=== PATIENT | male | born 1950 | race Caucasian/White ===

== ENCOUNTER → 2016-07-12 | Outpatient (REF) | payer OTHER ==
[2016-07-12 13:00] LABS: ALBUMIN 3.8 GM/DL (3.2-5.2); ALBUMIN/GLOBULIN RATIO 1.46 (1.00-1.93); ALKALINE PHOSPHATASE 73 U/L (45-117); ALT/SGPT 38 U/L (12-78); ANION GAP 6 MEQ/L (8-16); AST/SGOT 22 U/L (15-37); BILIRUBIN,TOTAL 0.9 MG/DL (0.2-1.0); BLOOD UREA NITROGEN 18 MG/DL (7-18); CALCIUM LEVEL 8.6 MG/DL (8.8-10.2); CARBON DIOXIDE LEVEL 31 MEQ/L (21-32); CHLORIDE LEVEL 103 MEQ/L (98-107); CHOLESTEROL LEVEL 149 MG/DL (<200); CREATININE FOR GFR 1.06 MG/DL (0.70-1.30); GLOMERULAR FILTRATION RATE > 60.0 (>49); GLUCOSE, FASTING 112 MG/DL (80-110); POTASSIUM SERUM 4.3 MEQ/L (3.5-5.1); SODIUM LEVEL 140 MEQ/L (136-145); TOTAL PROTEIN 6.4 GM/DL (6.4-8.2); TRIGLYCERIDES LEVEL 173 MG/DL (<150)
== END ==
LOC: M SFHCPLAZ 08:00
PROVIDERS: ATTEND Nurse Practitioner Family
DX: I10 Essential (primary) hypertension (principal); R73.01 Impaired fasting glucose

== ENCOUNTER → 2016-10-11 | Outpatient (REF) | payer OTHER ==
[2016-10-14 00:08] LABS: Lyme Disease IgG/IgM Antibodie <0.91 ISR (0.00-0.90); Lyme Disease IgM Ab Quantitati <0.80 index (0.00-0.79)
== END ==
LOC: M SFHCPLAZ 10:58
PROVIDERS: ATTEND Nurse Practitioner Family
DX: S40.861A Insect bite (nonvenomous) of right upper arm, initial encounter (principal); W18.30XA Fall on same level, unspecified, initial encounter; Y92.009 Unspecified place in unspecified non-institutional (private) residence as the place of occurrence of the external cause

== ENCOUNTER → 2017-01-03 | Outpatient (REF) | payer OTHER ==
[2017-01-03 11:27] LABS: ALBUMIN 3.8 GM/DL (3.2-5.2); ALBUMIN/GLOBULIN RATIO 1.23 (1.00-1.93); ALKALINE PHOSPHATASE 75 U/L (45-117); ALT/SGPT 40 U/L (12-78); ANION GAP 6 MEQ/L (8-16); AST/SGOT 20 U/L (15-37); BILIRUBIN,TOTAL 0.7 MG/DL (0.2-1.0); BLOOD UREA NITROGEN 23 MG/DL (7-18); CALCIUM LEVEL 8.9 MG/DL (8.8-10.2); CARBON DIOXIDE LEVEL 30 MEQ/L (21-32); CHLORIDE LEVEL 106 MEQ/L (98-107); GLOMERULAR FILTRATION RATE > 60.0 (>49); GLUCOSE, FASTING 113 MG/DL (80-110); POTASSIUM SERUM 3.9 MEQ/L (3.5-5.1); SODIUM LEVEL 142 MEQ/L (136-145); TOTAL PROTEIN 6.9 GM/DL (6.4-8.2)
== END ==
LOC: M SFHCPLAZ 08:42
PROVIDERS: ATTEND Nurse Practitioner Family
DX: E78.5 Hyperlipidemia, unspecified (principal)

== ENCOUNTER → 2018-02-18 | Outpatient (REF) | payer MEDICARE, OTHER ==
[2018-02-18 12:21] LABS: ALBUMIN 3.8 GM/DL (3.2-5.2); ALBUMIN/GLOBULIN RATIO 1.15 (1.00-1.93); ALKALINE PHOSPHATASE 84 U/L (45-117); ALT/SGPT 46 U/L (12-78); ANION GAP 8 MEQ/L (8-16); AST/SGOT 37 U/L (7-37); BILIRUBIN,TOTAL 1.1 MG/DL (0.2-1.0); BLOOD UREA NITROGEN 18 MG/DL (7-18); CALCIUM LEVEL 8.8 MG/DL (8.8-10.2); CARBON DIOXIDE LEVEL 28 MEQ/L (21-32); CHLORIDE LEVEL 106 MEQ/L (98-107); CHOLESTEROL LEVEL 168 MG/DL (<200); CHOLESTEROL RISK RATIO 2.666 (<5); GLOMERULAR FILTRATION RATE > 60.0 (>49); GLUCOSE, FASTING 110 MG/DL (70-100); HDL CHOLESTEROL 63 MG/DL (>40); LDL CHOLESTEROL 89 MG/DL (<100); NON-HDL-C 105 MG/DL; POTASSIUM SERUM 4.3 MEQ/L (3.5-5.1); SODIUM LEVEL 142 MEQ/L (136-145); TOTAL PROTEIN 7.1 GM/DL (6.4-8.2); TRIGLYCERIDES LEVEL 82 MG/DL (<150)
[2018-02-18 14:30] LABS: ESTIMATED AVERAGE GLUCOSE 128 MG/DL (60-110); HEMOGLOBIN A1c 6.1 %
== END ==
LOC: M SFHCPLAZ 09:22
DX: R73.01 Impaired fasting glucose (principal); E78.5 Hyperlipidemia, unspecified; Z12.5 Encounter for screening for malignant neoplasm of prostate
CPT/HCPCS: 80053

== ENCOUNTER → 2018-08-16 | Outpatient (REF) | payer MEDICARE, OTHER ==
[2018-08-16 12:52] LABS: ALT/SGPT 45 U/L (12-78); BILIRUBIN,TOTAL 0.5 MG/DL (0.2-1.0); BLOOD UREA NITROGEN 23 MG/DL (7-18); CALCIUM LEVEL 8.9 MG/DL (8.8-10.2); CARBON DIOXIDE LEVEL 28 MEQ/L (21-32); CHLORIDE LEVEL 109 MEQ/L (98-107); CREATININE FOR GFR 1.01 MG/DL (0.70-1.30); GLOMERULAR FILTRATION RATE > 60.0 (>49); GLUCOSE, FASTING 116 MG/DL (70-100); POTASSIUM SERUM 4.4 MEQ/L (3.5-5.1); SODIUM LEVEL 143 MEQ/L (136-145); TOTAL PROTEIN 6.5 GM/DL (6.4-8.2)
== END ==
LOC: M SFHCPLAZ 08:43
PROVIDERS: ATTEND Nurse Practitioner Family
DX: I10 Essential (primary) hypertension (principal); E78.5 Hyperlipidemia, unspecified

== ENCOUNTER → 2018-10-29 | Outpatient (CLI) | payer MEDICARE, OTHER ==
--- NOTE | 2018-10-29 15:39 | REP ---
Supine abdomen two views for renal calculi: Comparison is 02/20/2012. There is a calculus in the mid pole of the left kidney measuring 14 mm. This previously measured 10 mm. There is a calculus in the left renal upper pole measuring 5 mm. This was not present previously. No right renal calculi are identified. There is a small calculus in the right upper quadrant. On a CT scan dated 01/22/2012 this can be seen as a calcified mesenteric node. No other calculi are identified. The bowel gas pattern is normal. Skeletal structures are unremarkable. Impression: Left renal calculi as described. Right upper quadrant calcified mesenteric node as described. Electronically Signed by Braeden Alcazar MD 10/29/2018 03:31 P
== END ==
LOC: M ADAMS 13:23
PROVIDERS: ATTEND Physician Assistant Medical
DX: R31.0 Gross hematuria (principal); N20.0 Calculus of kidney
CPT/HCPCS: 74018; 81002; G0463

== ENCOUNTER → 2018-11-12 | Outpatient (REF) | payer MEDICARE, OTHER ==
[~2018-11-12] MED LIST: ASPI81TA85 PO; CLAR10TA7 PO; CO Q50CA PO; COLA100C5 PO; DIOV80TA3 PO; FLOM0.4C39 PO; KRIL1CAP10 PO; LIPI20TA PO; MULTCAP PO; OCUV1CAP4 PO; PERCOCET PO; PROBCAP14 PO; TUMETAB PO; VIAG100T PO
== END ==
LOC: M SFHCPLAZ 09:51
PROVIDERS: ATTEND Nurse Practitioner Family
DX: N02.9 Recurrent and persistent hematuria with unspecified morphologic changes (principal); N20.0 Calculus of kidney
CPT/HCPCS: 81002; 87086; G0463

== ENCOUNTER → 2018-11-13 | Outpatient (CLI) | payer MEDICARE, OTHER ==
[2018-11-13 13:49] LABS: BLOOD UREA NITROGEN 22 MG/DL (7-18); CREATININE FOR GFR 0.93 MG/DL (0.70-1.30); GLOMERULAR FILTRATION RATE > 60.0 (>49)
[2018-11-13 13:50] LABS: APPEARANCE, URINE CLEAR (CLEAR); BACTERIA, URINE AUTO NEGATIVE (NEGATIVE); BILIRUBIN, URINE AUTO NEGATIVE (NEGATIVE); BLOOD, URINE BLOOD 1+ (NEGATIVE); CALCIUM OXALATE CRYSTALS SMALL; COLOR, URINE YELLOW (YELLOW); GLUCOSE, URINE (UA) AUTO NEGATIVE (NEGATIVE); KETONE, URINE AUTO NEGATIVE (NEGATIVE); LEUKOCYTE ESTERASE, URINE AUTO NEGATIVE (NEGATIVE); MUCUS, URINE SMALL (NEGATIVE); NITRITE, URINE AUTO NEGATIVE (NEGATIVE); PROTEIN, URINE AUTO NEGATIVE (NEGATIVE); RBC, URINE AUTO 27 /HPF (0-3); SPECIFIC GRAVITY URINE AUTO 1.021 (1.002-1.035); SQUAMOUS EPITHELIAL CELL UR AU 0 /HPF (0-6); UROBILINOGEN, URINE AUTO 0.2 mg/dL (0.0-2.0); WBC, URINE AUTO 2 /HPF (0-3)
== END ==
LOC: M SMT 10:02
PROVIDERS: ATTEND Urology
DX: R31.29 Other microscopic hematuria (principal)
CPT/HCPCS: 36415; 81001; 82565; 84520; G0463

== ENCOUNTER → 2018-11-15 | Outpatient (CLI) | payer MEDICARE, OTHER ==
[~2018-11-15] MED LIST changes: +ISOVUE-370 76% 100ML VIAL (Q9967) As Ordered ONE
--- NOTE | 2018-11-15 18:54 | REP ---
CT ABDOMEN PELVIS WITH WITHOUT AND WITH IV CONTRAST (CT UROGRAM): 11/15/2018. Comparison: Abdomen x-ray 10/29/2018, noncontrast CT 01/22/2012. Clinical history: Microhematuria. Renal stone disease. Technique: Precontrast images followed by bolus 100 ml Isovue 370 with a venous and delayed phases obtained. Coronal and sagittal reconstructions with 3-D surface rendering for CT urogram provided for the delayed images. Findings: CT abdomen: The lung bases are clear. Heart size borderline but no pericardial thickening or effusion. Left ventricle appears mildly prominent. No hiatal hernia. Liver and spleen are not enlarged and were unremarkable. No biliary dilatation seen. No ascites. Gallbladder without calcified stone or mass. Pancreas unremarkable. Adrenal glands were grossly intact. Stomach collapsed without mass. The small bowel loops and abdominal portion of the colon were unremarkable. A retrocecal appendix is seen. There is an exophytic lesion off the anterior aspect upper pole of the right kidney up to 2.3 x 2.5 x 2[address] attenuation values of 19 HU precontrast enhancing to 46 on the venous phase and 77 on the delayed phase indicating an enhancing solid lesion. The left lower pole 4.7 cm cyst in 2012 is 11 mm now with a scar adjacent. Posteriorly in the upper pole of the right kidney is a 2.3 cm simple cyst. There was an extrarenal pelvis with a 14 mm stone within it. There are a couple of tiny pyramidal stones in the right kidney 2-3 mm and another stone about 6.8 mm triangular-shaped in a pyramid in the upper pole region. The ureters are not dilated. They show no stone on either side as they coarse from the UPJ to the UVJ. The bone window show no stone on either side as they course from the UPJ to the UVJ. Bone windows show lumbar and lower thoracic levels with some minor degenerative change and the visualized ribs intact. CT pelvis, sacrum and SI joints show minor degenerative changes of the hips but there is no fracture or destructive lesion nor interval changes since 2011. Prostate mildly prominent. Few calcifications. Bladder without mass or wall thickening. Small urachal remnant without patent urachus. No mass. No pelvic lymphadenopathy. Omental fat slightly distending the inguinal canals but no inguinal hernia on the bowel loops. Small bowel loops and distal: Unremarkable. Impression: 1. Peripherally and anterolaterally in the upper pole right kidney, an exophytic 2.5 x 2.3 cm enhancing nodule representing at least partially solid lesion. This should be considered malignant until proven otherwise. 2. Nephrolithiasis as described, the largest a 14 mm left renal pelvic stone with a few other much smaller stones as described. No hydronephrosis or hydroureter and no ureteral/bladder stone. 3. No other significant finding. Urology referral strongly recommended. Note faxed to office. Electronically Signed by Oumar De Souza MD 11/16/2018 10:02 A
== END ==
LOC: M RAD 12:41
PROVIDERS: ATTEND Urology
DX: N20.0 Calculus of kidney (principal)
CPT/HCPCS: 74178; Q9967

== ENCOUNTER → 2018-11-27 | Outpatient (CLI) | payer MEDICARE, OTHER ==
[~2018-11-27] MED LIST changes: -COLA100C5 PO; -FLOM0.4C39 PO; -ISOVUE-370 76% 100ML VIAL (Q9967) As Ordered ONE; -KRIL1CAP10 PO; -PERCOCET PO; -TUMETAB PO
[2018-11-27 14:48] LABS: BASO % 0.7 % (0.0-1.0); EOS # 0.1 10^3/uL (0.0-0.50); EOS % 2.5 % (0.0-3.0); HEMATOCRIT 42.8 % (42.0-52.0); HEMOGLOBIN 14.1 g/dl (13.5-17.5); LYMPH # 1.9 10^3/uL (1.5-4.5); LYMPH % 32.9 % (24.0-44.0); MEAN CORPUSCULAR HEMOGLOBIN 30.9 pg (27.0-33.0); MEAN CORPUSCULAR HGB CONC 32.9 g/dl (32.0-36.5); MEAN CORPUSCULAR VOLUME 93.9 fl (80.0-96.0); MONO # 0.6 10^3/uL (0.0-0.8); MONO % 9.7 % (0.0-5.0); NEUTROPHILS # 3.1 10^3/uL (1.8-7.7); PLATELET COUNT, AUTOMATED 210 10^3/uL (150-450); RED BLOOD COUNT 4.56 10^6/uL (4.30-6.10); WHITE BLOOD COUNT 5.7 10^3/uL (4.0-10.0)
[2018-11-27 14:52] LABS: BLOOD UREA NITROGEN 25 MG/DL (7-18); CALCIUM LEVEL 9.5 MG/DL (8.8-10.2); CARBON DIOXIDE LEVEL 29 MEQ/L (21-32); CHLORIDE LEVEL 110 MEQ/L (98-107); CREATININE FOR GFR 0.98 MG/DL (0.70-1.30); GLOMERULAR FILTRATION RATE > 60.0 (>49); GLUCOSE, FASTING 109 MG/DL (70-100); POTASSIUM SERUM 4.3 MEQ/L (3.5-5.1); SODIUM LEVEL 143 MEQ/L (136-145)
== END ==
LOC: M SMT 09:27
PROVIDERS: ATTEND Urology
DX: N02.9 Recurrent and persistent hematuria with unspecified morphologic changes (principal); N20.0 Calculus of kidney

== ENCOUNTER 2018-12-19 06:07 | Day surgery (SDC) | payer MEDICARE, OTHER ==
[~2018-12-19] VITALS: Ht 170.2 cm; Wt 81.2 kg
[~2018-12-19 06:07] MED LIST changes: +LR 1,000 ML IV ONE
[2018-12-19] MEDS ORDERED: PROPOFOL 200 MG/20 ML VIAL As Ordered ONE (07:09)
[2018-12-19] MEDS ORDERED: ONDANSETRON 4MG/2ML VIAL (J2405) As Ordered ONE (07:09)
[2018-12-19] MEDS ORDERED: MIDAZOLAM INJ 2 MG/2 ML VIAL (J2250) As Ordered ONE (07:09)
[2018-12-19] MEDS ORDERED: fentaNYL 100 MCG/2 ML INJECTION (J3010) As Ordered ONE (07:09)
[2018-12-19] MEDS ORDERED: LIDOCAINE 2% INJ 100 MG/5 ML SDV (FOR ANES.) As Ordered ONE (07:09)
[2018-12-19] MEDS ORDERED: ONDANSETRON 4MG/2ML VIAL (J2405) IV PRN (08:30)
[2018-12-19] MEDS ORDERED: fentaNYL 100 MCG/2 ML INJECTION (J3010) IV PRN (08:30)
[2018-12-19] MEDS ORDERED: PERCOCET 5MG/325MG TAB PO PRN (08:45)
--- NOTE | 2018-12-19 09:33 | REP ---
KUB: Single view. HISTORY: Kidney stone. COMPARISON RADIOGRAPHS: March 04, 2012. Comparison CT study November 15, 2018. FINDINGS: There is a large central intrarenal calculus projecting over the left kidney measuring 16 mm in diameter unchanged from the CT. There are two to three other visible calcific opacities overlying the left kidney which are all smaller. There is some bowel gas over the right kidney and the top of the right kidney is excluded from the field of view. No definite right renal calculus. No bladder calculus is observed. There is a phlebolith in the right pelvis. IMPRESSION: Intrarenal nephrolithiasis left kidney essentially unchanged from the recent CT study. The largest stone is central consistent with the pelvic location on CT. This measures 16 mm on plain radiographs. Electronically Signed by Terrence Graham MD 12/19/2018 12:57 P
[2018-12-19 09:40] VITALS: BP 150/71
--- NOTE | 2018-12-19 19:55 | RO ---
DATE OF PROCEDURE: 12/19/2018 PREPROCEDURE DIAGNOSIS: Left kidney stones. POSTPROCEDURE DIAGNOSIS: Left kidney stones. PROCEDURE: Left extracorporeal shock wave lithotripsy. SURGEON: Dr. Timothy Olivera DISPLAY DESIGNER: None. ANESTHESIA: Monitored anesthesia care (MAC) OPERATIVE INDICATIONS: This is a 68-year-old male who was found to have an approximately 13 mm left renal pelvic stone, as well as an approximately 6 mm upper pole stone. He was brought to the operating room today for treatment. DESCRIPTION OF PROCEDURE: The patient was brought to the operating room and MAC anesthesia was administered. Prophylactic antibiotics were infused. He was then placed in the supine position in preparation for a left extracorporeal shock wave lithotripsy. Fluoroscopy was utilized to monitor stone position and fragmentation throughout the procedure. Shock waves were then delivered to the larger kidney stone. Shock waves were delivered ungated. Given the size of the 13 mm stone, the decision was made to only shock that stone to make sure we adequately fragmented it. After 2500 shocks, the procedure was completed. The stone did appear to fragment well. There are no arrhythmias. The patient was then awakened from anesthesia and transported to the recovery room in stable condition. Estimated blood loss: 0 mL. Complications: None. Specimens: None. Plan: The patient will followup in the clinic in approximately 2 weeks and get an x-ray at that time. If it appears the majority or all the stone fragments from the larger stone have passed, then we will focus on treating his right renal tumor with a right robotic partial nephrectomy. [facility]PITALMinerva
== END 2018-12-19 10:04 | disposition home or self-care (01) ==
LOC: M SDC 06:07
PROVIDERS: ATTEND Urology
DX: N20.0 Calculus of kidney (principal); I10 Essential (primary) hypertension; E78.5 Hyperlipidemia, unspecified; K21.9 Gastro-esophageal reflux disease without esophagitis; Z79.82 Long term (current) use of aspirin; Z79.899 Other long term (current) drug therapy
CPT/HCPCS: 50590; 74018; J0690; J2250; J2405; J3010

== ENCOUNTER → 2019-01-02 | Outpatient (CLI) | payer MEDICARE, OTHER ==
[~2019-01-02] MED LIST changes: +FLOM0.4C39 PO; +KRIL1CAP10 PO; -LR 1,000 ML IV ONE; +TUMETAB PO
--- NOTE | 2019-01-02 10:18 | REP ---
CHEST, TWO VIEWS: There is no evidence of acute infiltrate. No pleural effusion is seen. The heart is normal in size. The mediastinal silhouette is unremarkable. The visualized osseous structures are intact. IMPRESSION: No acute pulmonary disease. Electronically Signed by Braeden German MD 01/02/2019 01:32 P
--- NOTE | 2019-01-02 10:28 | REP ---
KUB ABDOMEN AND PELVIS: Two KUB films of the abdomen and pelvis are performed and compared to a prior study of 12/19/2018. Calcification overlying the upper pole of the left kidney is unchanged, approximately 6 mm maximally. The larger calcification previously seen more inferiorly in the region of the left renal pelvis is not visualized. However there are 4 or 5 subcentimeter calcific densities at the left base of the bladder which I presume represent small calculi in the distal end of the left ureter status post lithotripsy. Bowel gas pattern is normal. There are degenerative changes of the spine and hips. IMPRESSION: Calculus in the left renal pelvis is no longer visualized but there are 4 or 5 subcentimeter calculi which appear to be in the distal left ureter presumably status post lithotripsy. Calculus upper pole left kidney is unchanged. Electronically Signed by Braeden German MD 01/02/2019 01:33 P
[2019-01-02 13:08] LABS: HEMATOCRIT 43.7 % (42.0-52.0); HEMOGLOBIN 14.4 g/dl (13.5-17.5); MEAN CORPUSCULAR HEMOGLOBIN 31.4 pg (27.0-33.0); MEAN CORPUSCULAR VOLUME 95.2 fl (80.0-96.0); PLATELET COUNT, AUTOMATED 214 10^3/uL (150-450); RED BLOOD COUNT 4.59 10^6/uL (4.30-6.10); WHITE BLOOD COUNT 5.7 10^3/uL (4.0-10.0)
[2019-01-02 13:30] LABS: BLOOD UREA NITROGEN 26 MG/DL (7-18); CARBON DIOXIDE LEVEL 29 MEQ/L (21-32); CHLORIDE LEVEL 108 MEQ/L (98-107); CREATININE FOR GFR 1.16 MG/DL (0.70-1.30); GLOMERULAR FILTRATION RATE > 60.0 (>49); GLUCOSE, FASTING 109 MG/DL (70-100); POTASSIUM SERUM 4.7 MEQ/L (3.5-5.1); SODIUM LEVEL 144 MEQ/L (136-145)
[2019-01-02 13:33] LABS: INR 1.07; PARTIAL THROMBOPLASTIN TIME 31.4 SECONDS (25.0-38.4); PROTHROMBIN TIME 13.6 SECONDS (11.8-14.0)
== END ==
LOC: M SMT 09:00
PROVIDERS: ATTEND Nurse Practitioner Family
DX: Z01.818 Encounter for other preprocedural examination (principal); N20.2 Calculus of kidney with calculus of ureter; N28.89 Other specified disorders of kidney and ureter

== ENCOUNTER → 2019-01-03 | Outpatient (REF) | payer MEDICARE, OTHER | LOC: M SMT 16:42 | PROVIDERS: ATTEND Nurse Practitioner Family | DX: N20.0 Calculus of kidney (principal) ==

== ENCOUNTER → 2019-01-08 | Outpatient (CLI) | payer MEDICARE, OTHER ==
[~2019-01-08] MED LIST changes: +COLA100C5 PO; +PERCOCET PO
--- NOTE | 2019-01-08 15:40 | REP ---
KUB: Two views. History: Calculus left kidney. Comparison study: January 02, 2019. Findings: Calcific opacities are again seen overlying the upper poles of each kidney. These measure 7 mm each in greatest diameter. No lower tract calculus is apparent. There is a right-sided pelvic phlebolith. Comparison with recent CT study showed that the calcifications seen on the right is extra renal and noted within the mesenteric fat. The previously noted large renal pelvis calculus is not apparent today. Impression: Findings consistent with an intrarenal calculus upper pole left kidney. The previously noted larger calculus on the left is no longer apparent. There is a rounded calcification projecting in the right upper quadrant which recent CT study showed was not in the urinary tract or biliary tract. Electronically Signed by Terrence Graham MD 01/08/2019 04:08 P
== END ==
LOC: M SMT 10:46
PROVIDERS: ATTEND Nurse Practitioner Family
DX: N20.0 Calculus of kidney (principal)

== ENCOUNTER 2019-01-15 05:58 | Inpatient (IN) | payer MEDICARE, OTHER ==
[2019-01-15] VITALS (7 sets, daily range): BP systolic 115–147; BP diastolic 58–72
[~2019-01-15] VITALS: Ht 170.2 cm; Wt 86.2 kg
[~2019-01-15 05:58] MED LIST changes: -COLA100C5 PO; -PERCOCET PO
[2019-01-15] MEDS ORDERED: CIPROFLOXACIN 400 MG in IV 1 EA IV ONE (06:00)
[2019-01-15] MEDS ORDERED: LIDOCAINE 1% MDV 20ML VIAL SQ PRN (06:00)
[2019-01-15] MEDS ORDERED: LR 1,000 ML IV ONE (06:00)
[2019-01-15] MEDS ORDERED: LIDOCAINE 1% SDV INJ 30 ML VIAL As Ordered ONE (07:09)
[2019-01-15] MEDS ORDERED: BUPIVACAINE HCL 0.25% 30 ML VIAL As Ordered ONE (07:09)
[2019-01-15] MEDS ORDERED: LIDOCAINE 2% INJ 100 MG/5 ML SDV (FOR ANES.) As Ordered ONE (07:13)
[2019-01-15] MEDS ORDERED: PROPOFOL 200 MG/20 ML VIAL As Ordered ONE (07:13)
[2019-01-15] MEDS ORDERED: fentaNYL 100 MCG/2 ML INJECTION (J3010) As Ordered ONE ×2 (07:13→08:32)
[2019-01-15] MEDS ORDERED: MIDAZOLAM INJ 2 MG/2 ML VIAL (J2250) As Ordered ONE (07:13)
[2019-01-15] MEDS ORDERED: dexameTHASONE 4 MG/ML 1ML VIAL (J1100) As Ordered ONE (07:13)
[2019-01-15] MEDS ORDERED: ROCURONIUM BROMIDE 50 MG/5 ML VIAL As Ordered ONE ×4 (07:13→17:50)
[2019-01-15] MEDS ORDERED: LACRILUBE (AKWA TEARS) OPHTH OINT 3.5 GM As Ordered ONE (07:15)
[2019-01-15] MEDS ORDERED: ACETAMINOPHEN TAB 650MG DOSE (2X325MG) PO PRN (08:00)
[2019-01-15] MEDS ORDERED: ONDANSETRON 4MG/2ML VIAL (J2405) IV PRN ×2 (08:00→12:45)
[2019-01-15] MEDS ORDERED: MORPHINE 4 MG/ML 1ML VIAL/SYRINGE (J2270) IV PRN (08:00)
[2019-01-15] MEDS ORDERED: VANCOMYCIN 1000 MG/20 ML VIAL (J3370) As Ordered ONE (08:25)
[2019-01-15] MEDS: VALSARTAN 80 MG TAB (DIOVAN) PO SCH (09:00)
[2019-01-15] MEDS: DOCUSATE SODIUM 100 MG CAP PO SCH ×2 (09:00→20:20)
[2019-01-15] MEDS: ASPIRIN 81 MG ENTERIC TAB PO SCH (09:00)
[2019-01-15] MEDS: ATORVASTATIN 20 MG TAB PO SCH (09:00)
[2019-01-15] MEDS: LORATADINE 10 MG TAB PO SCH (09:00)
[2019-01-15] MEDS ORDERED: MANNITOL 25% 12.5 GM/50 ML VIAL (J2150) As Ordered ONE (09:02)
[2019-01-15] MEDS ORDERED: FILTER 1.2 MICRON (ADULT TPN/MANNITOL/REMICADE) XX ONE (09:02)
[2019-01-15] MEDS ORDERED: ACETAMINOPHEN 1000MG 100ML IV BTL (OFIRMEV) (J0131 PER 10MG) As Ordered ONE (10:46)
[2019-01-15] MEDS ORDERED: ONDANSETRON 4MG/2ML VIAL (J2405) As Ordered ONE (10:46)
[2019-01-15] MEDS ORDERED: SUGAMMADEX SODIUM 500 MG/5 ML VIAL (BRIDION) As Ordered ONE (11:29)
[2019-01-15 12:35] LABS: HEMATOCRIT 35.9 % (42.0-52.0); HEMOGLOBIN 12.4 g/dl (13.5-17.5); MEAN CORPUSCULAR HGB CONC 34.5 g/dl (32.0-36.5); MEAN CORPUSCULAR VOLUME 92.8 fl (80.0-96.0); PLATELET COUNT, AUTOMATED 159 10^3/uL (150-450); RED BLOOD COUNT 3.87 10^6/uL (4.30-6.10); WHITE BLOOD COUNT 8.1 10^3/uL (4.0-10.0)
[2019-01-15] MEDS ORDERED: HYDROMORPHONE HCL 0.5 MG/ 0.5 ML SYRINGE (J1170 PER 1) IV PRN (12:45)
[2019-01-15] MEDS ORDERED: PERCOCET 5MG/325MG TAB PO PRN (12:45)
[2019-01-15] MEDS ORDERED: fentaNYL 100 MCG/2 ML INJECTION (J3010) IV PRN (12:45)
[2019-01-15] MEDS ORDERED: LR 1,000 ML IV SCH (12:45)
--- NOTE | 2019-01-15 12:57 | ROOPDOC ---
[facility] Report Of Operation Report of Operation DATE OF PROCEDURE: 01/15/19 PREPROCEDURE DIAGNOSES: Right Renal Neoplasm. POSTPROCEDURE DIAGNOSES: Right Renal Neoplasm. PROCEDURE: Right Robotic-assisted Laparoscopic Partial Nephrectomy with Intraoperative Ultrasound for Tumor Mapping. SURGEON: Nita Sarah MD GIFT BASKET PACKER: None ANESTHESIA: General OPERATIVE INDICATIONS: This is a 68 year old male with a 2.5cm enhancing solid right renal neoplasm concerning for malignancy. He was brought to the operating room today for treatment. DESCRIPTION OF PROCEDURE: The patient was brought to the operating room and general anesthesia was induced. Prophylactic antibiotics were infused. A Butler catheter was placed under sterile conditions. The patient was then placed in the left lateral decubitus position. All pressure points were appropriately padded and an axillary roll was placed. She was secured to the table with tape. The patient was then prepped and draped in the usual sterile fashion. The initial incision was for an 8mm port in line with the 11th rib along the lateral rectus margin. A Veress needle was then utilized to achieve the pneumoperitoneum. An 8mm port was then placed in through this incision and through which the camera was inserted. There were no injuries from Veress needle placement or initial trocar placement. The remaining ports were then placed under vision. The right hand robotic port was placed along the costal margin in line with the camera port. Another 5 mm port was placed just inferior to the xyphoid for access for a liver retractor. Two left robotic ports were placed with one just inferior to the camera port, and the other between the anterior-superior iliac spine and the umbilicus. A 12mm catering administrative assistant port was placed in between the camera port and the more cephalad left hand robotic port. The robot was then docked. We started by lifting up the liver with a laparoscopic locking Allis clamp. Next the right colon was dissected off of Gerota's fascia. We then Kocherized the duodenum. At this point the inferior vena cava (IVC) was identified. A plane was made onto the lateral aspect of the IVC and this was carried cephalad until the right renal vein was encountered. This was carefully dissected and just inferior to the renal vein, the right renal artery was identified. This was also carefully dissected. Next I had our senior consulting manager administer 12.5g of mannitol. Gerota's fascia was then opened and I defatted the kidney. On the anterior and superior aspect of the kidney the tumor was seen. It was mostly exophytic. Ultrasound was then utilized to dacia the boundaries of the mass. Next 2 bulldog clamps were placed on the renal artery and we began resecting the mass. The mass was resected completely and it appeared that we had a good margin. Once the mass was removed, the renorrhaphy was performed first by ligating all vessels in the base of resection with a 2-0 vicryl suture using figure of eight stitches. The capsule of the kidney was then reapproximated using 0-vicryl suture with Weck clips to cinch down the suture. Once this was done the clamps were removed and hemostasis was excellent. The warm ischemia time was 34 minutes. Next Miguel was applied to the resection bed and the tumor was placed in an endocatch bag. A Reagan Jiang drain was positioned just medial to the kidney. The liver retractor was then removed and the robot was undocked after confirming hemostasis within the abdomen. The catering administrative assistant port was then extended at the skin level and then at the fascia. The specimen was then removed in the endocatch bag. The fascia was then closed with a running #0 Vicryl suture. At this point, the abdomen was reinsufflated and we looked back in with the camera and there was no bleeding underneath the extraction site. No abdominal contents were caught within the closure either. We then removed all the ports under direct vision and there was no bleeding from any of the port sites. At this point, all the incisions were thoroughly irrigated. We then closed the skin of each site using a running #4-0 subcuticular Monocryl stitch. The Reagan Jiang drain was secured to the skin usint #3-0 Ethilon suture. Local anesthetic was then applied to each incision and Dermabond was then applied and this marked the conclusion of the procedure. The patient was then taken out of the left lateral decubitus position, awakened from anesthesia and transported to the recovery room in stable condition. ESTIMATED BLOOD LOSS: 200 mL INTRAOPERATIVE COMPLICATIONS: None SPECIMENS: Right renal neoplasm WARM ISCHEMIA TIME: 34 minutes NORMAL RIGHT RENAL PARENCHYMA SPARED: 95% PLAN: The patient will be admitted to the hospital postoperatively and he will be discharged home once his renal function is stable and he is tolerating a regular diet. NITA SARAH MD Jan 15, 2019 12:57
[2019-01-15 13:00] LABS: BLOOD UREA NITROGEN 17 MG/DL (7-18); CALCIUM LEVEL 8.4 MG/DL (8.8-10.2); CARBON DIOXIDE LEVEL 26 MEQ/L (21-32); CHLORIDE LEVEL 107 MEQ/L (98-107); CREATININE FOR GFR 1.13 MG/DL (0.70-1.30); GLOMERULAR FILTRATION RATE > 60.0 (>49); GLUCOSE, FASTING 183 MG/DL (70-100); POTASSIUM SERUM 4.3 MEQ/L (3.5-5.1); SODIUM LEVEL 140 MEQ/L (136-145)
[2019-01-15] MEDS: NS 1,000 ML IV SCH ×3 (14:00→23:17)
[2019-01-15] MEDS: PERCOCET 5MG/325MG TAB PO PRN ×2 (16:02→20:31)
[2019-01-15] MEDS: GENTAMICIN 80 MG in IV 1 EA IV SCH (20:20)
[2019-01-15] MEDS ORDERED: VANCOMYCIN HCL 1,000 MG, VIAL MATE ADAPTER 1 EACH in D5W 250 ML IV SCH (21:00)
[2019-01-16] MEDS: PERCOCET 5MG/325MG TAB PO PRN ×5 (01:57→22:45)
[2019-01-16] MEDS: GENTAMICIN 80 MG in IV 1 EA IV SCH (03:32)
[2019-01-16 05:56] LABS: HEMATOCRIT 36.3 % (42.0-52.0); HEMOGLOBIN 12.1 g/dl (13.5-17.5); MEAN CORPUSCULAR HEMOGLOBIN 30.8 pg (27.0-33.0); MEAN CORPUSCULAR HGB CONC 33.3 g/dl (32.0-36.5); MEAN CORPUSCULAR VOLUME 92.4 fl (80.0-96.0); PLATELET COUNT, AUTOMATED 177 10^3/uL (150-450); RED BLOOD COUNT 3.93 10^6/uL (4.30-6.10); WHITE BLOOD COUNT 10.2 10^3/uL (4.0-10.0)
[2019-01-16 06:00] VITALS: BP 147/70
[2019-01-16 06:16] LABS: BLOOD UREA NITROGEN 19 MG/DL (7-18); CALCIUM LEVEL 7.8 MG/DL (8.8-10.2); CARBON DIOXIDE LEVEL 28 MEQ/L (21-32); CHLORIDE LEVEL 108 MEQ/L (98-107); CREATININE FOR GFR 1.13 MG/DL (0.70-1.30); GLOMERULAR FILTRATION RATE > 60.0 (>49); GLUCOSE, FASTING 110 MG/DL (70-100); POTASSIUM SERUM 3.9 MEQ/L (3.5-5.1); SODIUM LEVEL 140 MEQ/L (136-145)
--- NOTE | 2019-01-16 07:36 | IPNPDOC ---
Subjective Review oF Systems Chief Complaint The patient is a 68-year-old male admitted with a reason for visit of Renal Mass. Events since Last Encounter No acute events o/n. Good pain control w/ percocet. No n/v. No f/c/ns. Objective Physical Examination General Exam: Alert, Cooperative, No Acute Distress ABDOMEN EXAM: Soft, Tenderness (mild), Other (nondistended; incisions clean/dry/intact; CHIKI w/ serosanguinous output) Skin Exam: Nl turgor and temperature Neuro Exam: Normal Speech Psych Exam: Mental status NL, Mood NL Other physical findings catheter in place, draining clear urine Vital Signs/I&O Vital Signs Date Time Temp Pulse Resp B/P (MAP) Pulse Ox O2 Delivery O2 Flow Rate FiO2 01/16/19 06:02 18 01/16/19 06:00 97.7 74 147/70 (95) 97 01/15/19 16:00 3.0 I&O- Last 24 Hours up to 6 AM 01/16/19 06:00 Intake Total 3600 ml Output Total 2155 ml Balance 1445 ml Laboratory Data Labs 24H Laboratory Tests 2 01/15/19 12:24: Nucleated Red Blood Cells % (auto) 0.0, Anion Gap 7L, Glomerular Filtration Rate > 60.0, Blood Urea Nitrogen 17, Creatinine 1.13, Sodium Level 140, Potassium Level 4.3, Chloride Level 107, Carbon Dioxide Level 26, Calcium Level 8.4L 01/16/19 05:22: Nucleated Red Blood Cells % (auto) 0.0, Anion Gap 4L, Glomerular Filtration Rate > 60.0, Blood Urea Nitrogen 19H, Creatinine 1.13, Sodium Level 140, Potassium Level 3.9, Chloride Level 108H, Carbon Dioxide Level 28, Calcium Level 7.8L CBC/BMP Laboratory Tests 01/15/19 12:24 Red Blood Count 3.87 L, Mean Corpuscular Volume 92.8, Mean Corpuscular Hemoglobin 32.0, Mean Corpuscular Hemoglobin Concent 34.5, Red Cell Distribution Width 12.2, Calcium Level 8.4 L 01/16/19 05:22 Red Blood Count 3.93 L, Mean Corpuscular Volume 92.4, Mean Corpuscular Hemoglob in 30.8, Mean Corpuscular Hemoglobin Concent 33.3, Red Cell Distribution Width 12.0, Calcium Level 7.8 L Assessment/Plan Date Seen The patient was seen on 01/16/19. Patient Summary This is a 68 y/o M POD1 s/p right robotic partial nephrectomy. He is doing well. Labs are w/i acceptable limits. Good UOP. Plan/VTE VTE Prophylaxis Ordered?: Yes VTE Exclusion Mechanical Proph: N/A:VTE Prophy Ordered Plan/Urinary Catheter Urinary Catheter: D/C Butler Plan - d/c catheter - d/c IVF - strict I/Os - percocet prn pain - SCDs when in bed - incentive spirometry - ambulate - CLD -> advance as tolerated - possible discharge home later today NITA SARAH MD Jan 16, 2019 07:36
[2019-01-16] MEDS: LORATADINE 10 MG TAB PO SCH (08:59)
[2019-01-16] MEDS: ASPIRIN 81 MG ENTERIC TAB PO SCH (08:59)
[2019-01-16] MEDS: VALSARTAN 80 MG TAB (DIOVAN) PO SCH (08:59)
[2019-01-16] MEDS: ATORVASTATIN 20 MG TAB PO SCH (09:00)
[2019-01-16] MEDS: DOCUSATE SODIUM 100 MG CAP PO SCH ×2 (09:00→22:46)
[2019-01-16 10:00] VITALS: BP 144/69
[2019-01-16 14:00] VITALS: BP 145/70
[2019-01-16 18:00] VITALS: BP 137/67
[2019-01-16] MEDS ORDERED: ATORVASTATIN 20 MG TAB PO SCH (21:30)
[2019-01-16 22:00] VITALS: BP 144/70
[2019-01-17 02:00] VITALS: BP 141/69
[2019-01-17 05:50] LABS: HEMOGLOBIN 12.3 g/dl (13.5-17.5); MEAN CORPUSCULAR HGB CONC 33.2 g/dl (32.0-36.5); MEAN CORPUSCULAR VOLUME 96.4 fl (80.0-96.0); PLATELET COUNT, AUTOMATED 148 10^3/uL (150-450); RED BLOOD COUNT 3.84 10^6/uL (4.30-6.10)
[2019-01-17 06:00] VITALS: BP 144/69
[2019-01-17 06:13] LABS: BLOOD UREA NITROGEN 17 MG/DL (7-18); CALCIUM LEVEL 8.3 MG/DL (8.8-10.2); CARBON DIOXIDE LEVEL 27 MEQ/L (21-32); CHLORIDE LEVEL 106 MEQ/L (98-107); CREATININE FOR GFR 1.16 MG/DL (0.70-1.30); GLOMERULAR FILTRATION RATE > 60.0 (>49); GLUCOSE, FASTING 118 MG/DL (70-100); POTASSIUM SERUM 3.8 MEQ/L (3.5-5.1); SODIUM LEVEL 138 MEQ/L (136-145)
[2019-01-17] MEDS: PERCOCET 5MG/325MG TAB PO PRN ×2 (06:17→10:55)
--- NOTE | 2019-01-17 07:48 | IPNPDOC ---
Subjective Review oF Systems Chief Complaint The patient is a 68-year-old male admitted with a reason for visit of Renal Mass. Events since Last Encounter Patient stayed another night as he was having a moderate amount of discomfort w/ ambulation yesterday. This is better today. No n/v. Passing flatus. Tolerating diet. Had a few low grade fevers. No chills or night sweats. Objective Physical Examination General Exam: Alert, Cooperative, No Acute Distress ABDOMEN EXAM: Soft, Tenderness (mild), Other (nondistended; incisions clean/dry/intact; CHIKI w/ serosanguinous output) Skin Exam: Nl turgor and temperature Neuro Exam: Normal Speech Psych Exam: Mental status NL, Mood NL Vital Signs/I&O Vital Signs Date Time Temp Pulse Resp B/P (MAP) Pulse Ox O2 Delivery O2 Flow Rate FiO2 01/17/19 06:47 18 01/17/19 06:00 99.5 79 144/69 (94) 94 01/15/19 16:00 3.0 I&O- Last 24 Hours up to 6 AM 01/17/19 06:00 Intake Total 1390 ml Output Total 1857 ml Balance -467 ml Laboratory Data Labs 24H Laboratory Tests 2 01/17/19 05:11: Nucleated Red Blood Cells % (auto) 0.0, Anion Gap 5L, Glomerular Filtration Rate > 60.0, Blood Urea Nitrogen 17, Creatinine 1.16, Sodium Level 138, Potassium Level 3.8, Chloride Level 106, Carbon Dioxide Level 27, Calcium Level 8.3L CBC/BMP Laboratory Tests 01/17/19 05:11 Red Blood Count 3.84 L, Mean Corpuscular Volume 96.4 H, Mean Corpuscular Hemoglobin 32.0, Mean Corpuscular Hemoglobin Concent 33.2, Red Cell Distribution Width 12.1, Calcium Level 8.3 L Assessment/Plan Date Seen The patient was seen on 01/17/19. Patient Summary This is a 68 y/o M POD2 s/p right robotic partial nephrectomy. He is doing well this morning. Hb stable. Cr stable at 1.1. WBC normal. Good UOP. Plan/VTE VTE Prophylaxis Ordered?: Yes VTE Exclusion Mechanical Proph: N/A:VTE Prophy Ordered Plan - d/c CHIKI drain - percocet prn pain - strict I/Os - SCDs in bed - incentive spirometry - ambulate - advance diet as tolerated - discharge home today NITA SARAH MD Jan 17, 2019 07:48
[2019-01-17] MEDS ORDERED: COLA100C5 PO (07:58)
[2019-01-17] MEDS ORDERED: PERCOCET PO (07:58)
[2019-01-17 09:15] VITALS: BP 144/69
[2019-01-17] MEDS: LORATADINE 10 MG TAB PO SCH (09:15)
[2019-01-17] MEDS: DOCUSATE SODIUM 100 MG CAP PO SCH (09:15)
[2019-01-17] MEDS: ASPIRIN 81 MG ENTERIC TAB PO SCH (09:15)
[2019-01-17] MEDS: VALSARTAN 80 MG TAB (DIOVAN) PO SCH (09:15)
[2019-01-17] MEDS ORDERED: FLUBLOK(EGG FREE)(QUAD)INFLUENZA VACC 0.5ML SYRINGE (90682)18YRS&OLDER IM ONE (11:00)
[2019-01-17 12:00] VITALS: BP 147/69
--- NOTE | 2019-01-17 18:24 | DSES ---
DATE OF ADMISSION: 01/15/2019 DATE OF DISCHARGE: 01/17/2019 ADMISSION DIAGNOSIS: Right renal neoplasm. DISCHARGE DIAGNOSIS: Right renal neoplasm. ADMITTING PHYSICIAN: Timothy Olivera M.D. DISCHARGING PHYSICIAN: Timothy Olivera M.D. PROCEDURES PERFORMED: Right robotic-assisted laparoscopic partial nephrectomy on 01/15/2019. HISTORY OF PRESENT ILLNESS: This is a 68-year-old male who underwent the above-listed procedure on 01/15/2019. He was admitted to the hospital postoperatively. HOSPITALIZATION COURSE: The patient's postoperative course was unremarkable. He had a moderate amount of pain with ambulation on postoperative day #1. Because of this, he was not ready to be discharged home on postoperative day #1. His catheter was removed and he voided without any difficulty. On postoperative day #2, his pain was much better controlled. He had an excellent amount of urine output throughout his hospital stay. His Reagan-Jiang drain output was within normal limits. We therefore removed his Reagan-Jiang drain on postoperative day #2. All of his labs throughout his hospital stay were unremarkable. Specifically, his hemoglobin remained stable at 12.3. His creatinine was also stable at around 1.2. He was tolerating a regular diet. He had excellent pain control on oral pain medication. He was therefore deemed ready for discharge home on postoperative day #2. He was discharged home with a plan for him to follow up in clinic in 1-2 weeks to discuss pathology results. POLO
== END 2019-01-17 12:21 | disposition home or self-care (01) | DRG 657 ==
LOC: M OR 05:58 → M MSPAV 13:45
PROVIDERS: ADMIT Urology; ATTEND Urology
PROC: 8E0W4CZ Robotic Assisted Procedure of Trunk Region, Percutaneous Endoscopic Approach (ICD-10-PCS; 2019-01-15)
PROC: 0TB Urinary System, Excision (ICD-10-PCS; principal; 2019-01-15 07:30)
DX: D30.01 Benign neoplasm of right kidney (principal); I42.9 Cardiomyopathy, unspecified; E78.5 Hyperlipidemia, unspecified; K76.0 Fatty (change of) liver, not elsewhere classified; I10 Essential (primary) hypertension; R73.01 Impaired fasting glucose; J30.9 Allergic rhinitis, unspecified; N52.9 Male erectile dysfunction, unspecified; Z79.899 Other long term (current) drug therapy

== ENCOUNTER → 2019-02-03 | Outpatient (CLI) | payer MEDICARE, OTHER ==
[~2019-02-03] MED LIST changes: +COLA100C5 PO; +PERCOCET PO
[2019-02-03 09:59] LABS: HEMATOCRIT 37.1 % (42.0-52.0); HEMOGLOBIN 12.5 g/dl (13.5-17.5); MEAN CORPUSCULAR HEMOGLOBIN 31.6 pg (27.0-33.0); MEAN CORPUSCULAR HGB CONC 33.7 g/dl (32.0-36.5); MEAN CORPUSCULAR VOLUME 93.7 fl (80.0-96.0); PLATELET COUNT, AUTOMATED 334 10^3/uL (150-450); RED BLOOD COUNT 3.96 10^6/uL (4.30-6.10); WHITE BLOOD COUNT 7.3 10^3/uL (4.0-10.0)
[2019-02-03 10:38] LABS: BLOOD UREA NITROGEN 20 MG/DL (7-18); CARBON DIOXIDE LEVEL 29 MEQ/L (21-32); CHLORIDE LEVEL 104 MEQ/L (98-107); CREATININE FOR GFR 1.02 MG/DL (0.70-1.30); GLOMERULAR FILTRATION RATE > 60.0 (>49); GLUCOSE, FASTING 113 MG/DL (70-100); POTASSIUM SERUM 4.4 MEQ/L (3.5-5.1); SODIUM LEVEL 141 MEQ/L (136-145)
== END ==
LOC: M SMT 08:51
PROVIDERS: ATTEND Urology
DX: D36.9 Benign neoplasm, unspecified site (principal); Z09 Encounter for follow-up examination after completed treatment for conditions other than malignant neoplasm

== ENCOUNTER → 2019-02-25 | Outpatient (REF) | payer MEDICARE, OTHER ==
[2019-02-25 12:32] LABS: ALT/SGPT 30 U/L (12-78); BILIRUBIN,TOTAL 0.6 MG/DL (0.2-1.0); BLOOD UREA NITROGEN 21 MG/DL (7-18); CALCIUM LEVEL 9.2 MG/DL (8.8-10.2); CARBON DIOXIDE LEVEL 30 MEQ/L (21-32); CHLORIDE LEVEL 106 MEQ/L (98-107); CHOLESTEROL LEVEL 159 MG/DL (<200); CHOLESTEROL RISK RATIO 2.239 (<5); CREATININE FOR GFR 1.03 MG/DL (0.70-1.30); GLOMERULAR FILTRATION RATE > 60.0 (>49); GLUCOSE, FASTING 119 MG/DL (70-100); HDL CHOLESTEROL 71 MG/DL (>40); LDL CHOLESTEROL 62 MG/DL (<100); NON-HDL-C 88 MG/DL; POTASSIUM SERUM 4.6 MEQ/L (3.5-5.1); SODIUM LEVEL 140 MEQ/L (136-145); TOTAL PROTEIN 7.1 GM/DL (6.4-8.2); TRIGLYCERIDES LEVEL 128 MG/DL (<150)
[2019-02-25 12:33] LABS: ALBUMIN 3.7 GM/DL (3.2-5.2)
[2019-02-27 00:06] LABS: Lyme Disease IgG/IgM Antibodie <0.91 ISR (0.00-0.90); Lyme Disease IgM Ab Quantitati <0.80 index (0.00-0.79)
== END ==
LOC: M SFHCPLAZ 08:40
PROVIDERS: ATTEND Family Medicine
DX: Z12.5 Encounter for screening for malignant neoplasm of prostate (principal); E78.5 Hyperlipidemia, unspecified; R73.01 Impaired fasting glucose; W57.XXXA Bitten or stung by nonvenomous insect and other nonvenomous arthropods, initial encounter; S30.861A Insect bite (nonvenomous) of abdominal wall, initial encounter
CPT/HCPCS: 36415; 80053; 80061; 83036; 86617; G0103

== ENCOUNTER → 2019-03-27 | Outpatient (CLI) | payer MEDICARE, OTHER ==
--- NOTE | 2019-03-27 11:17 | REPPI ---
Three-view cervical spine: 03/27/2019. Indication: Neck pain. Cervical radiculopathy. Comparison: None. Findings: There is no acute fracture, subluxation or dislocation. There is straightening of the cervical lordosis. Multilevel spondylosis is present most pronounced at C4/C5 and C5/C6. The prevertebral and additional visualized soft tissues are unremarkable. Impression: No acute osseous cervical spine injury. Electronically Signed by Wong Osei DO 03/27/2019 11:08 A
--- NOTE | 2019-03-27 11:26 | REPPI ---
Three views right shoulder: 03/27/2019. Indication: Right shoulder pain. Comparison: None. Findings: There is no acute fracture, subluxation or dislocation. No lytic or blastic lesions of the visualized osseous structures are present. The visualized lungs are clear. Impression: No acute osseous injury of the right shoulder. Electronically Signed by Wong Osei DO 03/27/2019 11:17 A
== END ==
LOC: M PLAIMG 10:48
PROVIDERS: ATTEND Physician Assistant
DX: M47.892 Other spondylosis, cervical region (principal); R20.2 Paresthesia of skin
CPT/HCPCS: 72040; 73030; G0463

== ENCOUNTER → 2019-09-02 | Outpatient (REF) | payer MEDICARE, OTHER ==
[2019-09-02 16:23] LABS: BLOOD UREA NITROGEN 20 MG/DL (7-18); CREATININE FOR GFR 1.05 MG/DL (0.70-1.30); GLOMERULAR FILTRATION RATE > 60.0 (>49); GLUCOSE, FASTING 121 MG/DL (70-100); SODIUM LEVEL 141 MEQ/L (136-145)
[2019-09-02 16:24] LABS: ALT/SGPT 43 U/L (12-78); BILIRUBIN,TOTAL 0.9 MG/DL (0.2-1.0); CALCIUM LEVEL 8.9 MG/DL (8.8-10.2); CARBON DIOXIDE LEVEL 29 MEQ/L (21-32); CHLORIDE LEVEL 109 MEQ/L (98-107); FREE T4 1.02 NG/DL (0.76-1.46); POTASSIUM SERUM 4.5 MEQ/L (3.5-5.1); TOTAL PROTEIN 7.1 GM/DL (6.4-8.2)
== END ==
LOC: M PLALAB 12:15
PROVIDERS: ATTEND Physician Assistant
DX: R73.01 Impaired fasting glucose (principal); E78.5 Hyperlipidemia, unspecified

== ENCOUNTER → 2019-09-02 | Outpatient (CLI) | payer MEDICARE, OTHER ==
--- NOTE | 2019-09-02 16:08 | REPPI ---
KUB ABDOMEN AND PELVIS: KUB film of the abdomen and pelvis is performed and compared to several priors studies, most recently 01/08/2019. In the left pelvis, there are two adjacent 4 mm calcifications, which I suspect are located in the distal left ureter. There may be another smaller 2 mm calcification just above this. There is a phlebolith again seen in the right pelvis. I suspect a 3 mm intrarenal calculus in the lower pole of the left kidney. Bowel gas pattern is normal. There are mild degenerative changes of the spine and hips. IMPRESSION: Distal left ureteral calculi suspected as discussed above. Electronically Signed by Braeden German MD 09/02/2019 04:39 P
== END ==
LOC: M PLAIMG 12:21
PROVIDERS: ATTEND Urology
DX: N20.0 Calculus of kidney (principal); R73.01 Impaired fasting glucose; E78.5 Hyperlipidemia, unspecified; I87.8 Other specified disorders of veins
CPT/HCPCS: 36415; 74018; 80053; 84439; 84443; G0463

== ENCOUNTER → 2019-09-30 | Outpatient (CLI) | payer MEDICARE, OTHER ==
[~2019-09-30] MED LIST changes: -ASPI81TA85 PO; +ASPI81TA86 PO
--- NOTE | 2019-09-30 15:37 | REP ---
REASON: Followup. Status post right renal mass excision. COMPARISON: Multiple, the latest 11/15/2018. The lack of intravenous contrast decreases the sensitivity of the exam. There is no significant change in the appearance of the lung bases. Mild fibrotic and/or subsegmental atelectatic changes are noted status quo. Limited evaluation of the solid intra-abdominal organs and gallbladder show no gross abnormalities or significant changes from the prior exam. Limited evaluation of the pancreas, adrenal glands, and left kidney again shows multiple nonobstructing left nephroliths and evidence of small left renal cysts. The large calcification seen previously in the left renal pelvis is no longer present. Postoperative change are seen involving the right kidney. Note is again made of an unchanged appearing cyst arising from the superior pole of the right kidney. The mass density seen in the presurgical region on the prior contrast enhanced examination of 11/15/2018 is not seen, however, the area is imaged in a limited fashion due to the lack of intravenous contrast. There is no free fluid or free air in the abdomen or pelvis. There is no evidence of an intra-abdominal or intrapelvic mass or adenopathy. The bowel loops and their mesenteries are within normal limits. Bone window technique throughout the exam shows chronic degenerative change involving the splenic, hips, and sacroiliac joints. The abdominal aorta and para-aortic regions are within normal limits. IMPRESSION: 1. Postoperative changes, as described above, seen in a limited fashion. There is no evidence of acute intra-abdominal or intra pelvic disease. 2. Note is again made of nonobstructing left nephroliths. The larger calcifications seen in the left renal pelvis is no longer present. 3. Other findings as described above. Electronically Signed by Oseas Fry DO 09/30/2019 05:28 P
== END ==
LOC: M RAD 12:27
PROVIDERS: ATTEND Urology
DX: N20.0 Calculus of kidney (principal)

== ENCOUNTER → 2020-03-16 | Outpatient (REF) | payer MEDICARE, OTHER ==
[2020-03-16 15:59] LABS: HEMATOCRIT 46.3 % (42.0-52.0); HEMOGLOBIN 15.3 g/dl (13.5-17.5); MEAN CORPUSCULAR HEMOGLOBIN 30.8 pg (27.0-33.0); MEAN CORPUSCULAR VOLUME 93.3 fl (80.0-96.0); PLATELET COUNT, AUTOMATED 187 10^3/uL (150-450); RED BLOOD COUNT 4.96 10^6/uL (4.30-6.10); WHITE BLOOD COUNT 5.3 10^3/uL (4.0-10.0)
[2020-03-16 16:10] LABS: ALT/SGPT 44 U/L (12-78); BILIRUBIN,TOTAL 1.3 MG/DL (0.2-1.0); BLOOD UREA NITROGEN 18 MG/DL (7-18); CALCIUM LEVEL 9.2 MG/DL (8.8-10.2); CARBON DIOXIDE LEVEL 29 MEQ/L (21-32); CHLORIDE LEVEL 105 MEQ/L (98-107); CHOLESTEROL LEVEL 175 MG/DL (<200); CHOLESTEROL RISK RATIO 2.966 (<5); CREATININE FOR GFR 1.04 MG/DL (0.70-1.30); GLOMERULAR FILTRATION RATE > 60.0 (>49); GLUCOSE, FASTING 100 MG/DL (70-100); HDL CHOLESTEROL 59 MG/DL (>40); LDL CHOLESTEROL 88 MG/DL (<100); NON-HDL-C 116 MG/DL; POTASSIUM SERUM 4.7 MEQ/L (3.5-5.1); SODIUM LEVEL 139 MEQ/L (136-145); TRIGLYCERIDES LEVEL 139 MG/DL (<150)
[2020-03-16 18:08] LABS: HEMOGLOBIN A1c 5.8 %
== END ==
LOC: M PLALAB 10:05
PROVIDERS: ATTEND Family Medicine
DX: Z79.82 Long term (current) use of aspirin (principal); R73.01 Impaired fasting glucose; E78.5 Hyperlipidemia, unspecified; Z12.5 Encounter for screening for malignant neoplasm of prostate
CPT/HCPCS: 36415; 80053; 80061; 83036; 85027; G0103

== ENCOUNTER → 2020-09-21 | Outpatient (CLI) | payer MEDICARE, OTHER ==
--- NOTE | 2020-09-21 13:25 | REPPI ---
INDICATION: N20.0 RENAL STONES. COMPARISON: 09/02/2019 FINDINGS: KUB shows the intestinal gas pattern to be nonspecific. The organ silhouettes insofar as delineated are unremarkable. There is no evidence of free intraperitoneal air. Calcifications seen previously in the left hemipelvis is no longer present. There is a right too pelvic phlebolith which is unchanged. There is a round calcification in the right upper quadrant superimposed over colonic content. IMPRESSION: As above. Consider noncontrast enhanced stone protocol CT if clinically relevant. <Electronically signed by Oseas Fry > 09/21/20 [id number]
== END ==
LOC: M PLAIMG 10:31
PROVIDERS: ATTEND Urology
DX: N20.0 Calculus of kidney (principal); I87.8 Other specified disorders of veins

== ENCOUNTER → 2020-10-08 | Outpatient (CLI) | payer MEDICARE, OTHER ==
--- NOTE | 2020-10-08 10:29 | REP ---
INDICATION: RENAL STONES. COMPARISON: Multiple latest 09/30/2019 TECHNIQUE: Noncontrast enhanced stone protocol FINDINGS: Lung bases are stable. Limited evaluation of the solid intra-organs and gallbladder show no significant changes from the prior exam. There are no cholelith. Limited evaluation of the pancreas, adrenal glands, and kidneys show no significant changes from the prior exam. Once again, there is postoperative change seen involving the right kidney along with a simple stable appearing right renal cyst. Once again, there are nonobstructing bilateral nephroliths. There is no hydronephrosis or hydroureter. There are no ureteroliths. There are no urinary bladder calcifications. 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 Limited evaluation of the bowel loops and the mesenteries shows no gross abnormalities or significant changes from the prior exam. There is no free fluid or free air. There is no evidence of a mass or adenopathy. Limited evaluation of the abdominal aorta and para-aortic regions show them to be stable. Bone window technique throughout the exam shows no significant change in appearance of the osseous structures. IMPRESSION: No significant change from the prior exam. There is no evidence of acute intra-abdominal or intrapelvic disease. <Electronically signed by Oseas Fry > 10/08/20 [id number]
== END ==
LOC: M PLAIMG 09:50
PROVIDERS: ATTEND Nurse Practitioner Family
DX: N20.0 Calculus of kidney (principal)

== ENCOUNTER → 2021-01-24 | Outpatient (CLI) | payer MEDICARE, OTHER ==
[2021-01-24 11:02] LABS: ALBUMIN 3.6 GM/DL (3.2-5.2); ALT/SGPT 79 U/L (12-78); BILIRUBIN,TOTAL 0.7 MG/DL (0.2-1.0); BLOOD UREA NITROGEN 19 MG/DL (7-18); CARBON DIOXIDE LEVEL 29 MEQ/L (21-32); CHLORIDE LEVEL 109 MEQ/L (98-107); CHOLESTEROL LEVEL 166 MG/DL (<200); CHOLESTEROL RISK RATIO 3.458 (<5); CREATININE FOR GFR 0.89 MG/DL (0.70-1.30); GLOMERULAR FILTRATION RATE > 60.0 (>49); GLUCOSE, FASTING 102 MG/DL (70-100); HDL CHOLESTEROL 48 MG/DL (>40); LDL CHOLESTEROL 84 MG/DL (<100); NON-HDL-C 118 MG/DL; POTASSIUM SERUM 4.2 MEQ/L (3.5-5.1); SODIUM LEVEL 142 MEQ/L (136-145); TOTAL PROTEIN 6.7 GM/DL (6.4-8.2); TRIGLYCERIDES LEVEL 168 MG/DL (<150)
[2021-01-24 11:31] LABS: HEMOGLOBIN A1c 6.1 %
== END ==
LOC: M PLALAB 08:49
PROVIDERS: ATTEND Family Medicine
DX: R73.01 Impaired fasting glucose (principal); E78.5 Hyperlipidemia, unspecified

== ENCOUNTER → 2021-02-23 | Outpatient (CLI) | payer MEDICARE, OTHER ==
--- NOTE | 2021-02-23 10:47 | REP ---
INDICATION: CHRONIC COUGH S/P COVID COMPARISON: None TECHNIQUE: Axial noncontrast images from the thoracic inlet to the upper abdomen with coronal and sagittal reformations. This CT examination was performed using the following dose reduction techniques: Automated exposure control, adjustment of mA and/or kv according to the patient's size, and use of iterative reconstruction technique. FINDINGS: The bilateral lung moreno are relatively well aerated and without acute process. Minimal linear scarring at the right middle lobe identified. No acute consolidation. No effusion. No pneumothorax. Tracheobronchial tree is patent. Mediastinum demonstrates relatively normal thoracic aorta and pulmonary vasculature. Cardiomegaly noted with atherosclerotic changes to the coronary arteries. No pericardial effusion. No adenopathy. Musculoskeletal structures are intact and without acute osseous abnormality. IMPRESSION: Minimal linear scarring in the right middle lobe. No further acute mediastinal or pleuroparenchymal process appreciated. <Electronically signed by Isidoro Scruggs > 02/23/21 [id number]
== END ==
LOC: M RAD 10:21
PROVIDERS: ATTEND Family Medicine
DX: R05.3 Chronic cough (principal); U09.9 Post COVID-19 condition, unspecified; J98.4 Other disorders of lung

== ENCOUNTER → 2021-04-27 | Outpatient (CLI) | payer MEDICARE, OTHER | LOC: M RAD 08:08 | PROVIDERS: ATTEND Physician Assistant | DX: R10.12 Left upper quadrant pain (principal); N28.1 Cyst of kidney, acquired ==

== ENCOUNTER → 2021-07-01 | Outpatient (REF) | payer MEDICARE, OTHER | LOC: M SFHCADAM 14:25 | PROVIDERS: ATTEND Family Medicine | DX: U07.1 COVID-19 (principal); E78.5 Hyperlipidemia, unspecified; R73.01 Impaired fasting glucose; Z12.5 Encounter for screening for malignant neoplasm of prostate ==

== ENCOUNTER → 2021-07-04 | Outpatient (CLI) | payer MEDICARE, OTHER ==
[2021-07-04 15:33] LABS: HEMATOCRIT 42.9 % (42.0-52.0); HEMOGLOBIN 14.6 g/dl (13.5-17.5); MEAN CORPUSCULAR HEMOGLOBIN 31.1 pg (27.0-33.0); MEAN CORPUSCULAR VOLUME 91.3 fl (80.0-96.0); PLATELET COUNT, AUTOMATED 214 10^3/uL (150-450); WHITE BLOOD COUNT 5.7 10^3/uL (4.0-10.0)
[2021-07-04 15:56] LABS: ALBUMIN 4.2 GM/DL (3.2-5.2); ALT/SGPT 53 U/L (12-78); BILIRUBIN,TOTAL 0.8 MG/DL (0.2-1.0); BLOOD UREA NITROGEN 22 MG/DL (7-18); CALCIUM LEVEL 9.5 MG/DL (8.8-10.2); CARBON DIOXIDE LEVEL 32 MEQ/L (21-32); CHLORIDE LEVEL 107 MEQ/L (98-107); CREATININE FOR GFR 1.07 MG/DL (0.70-1.30); GLOMERULAR FILTRATION RATE > 60.0 (>49); GLUCOSE, FASTING 118 MG/DL (70-100); POTASSIUM SERUM 4.5 MEQ/L (3.5-5.1); SODIUM LEVEL 141 MEQ/L (136-145); TOTAL PROTEIN 7.1 GM/DL (6.4-8.2)
[2021-07-04 17:14] LABS: HEMOGLOBIN A1c 6.2 %
== END ==
LOC: M PLALAB 11:55
PROVIDERS: ATTEND Family Medicine
DX: U07.1 COVID-19 (principal); Z12.5 Encounter for screening for malignant neoplasm of prostate; D64.9 Anemia, unspecified
CPT/HCPCS: 36415; 80053; 83036; 85027; G0103

== ENCOUNTER → 2021-09-07 | Outpatient (CLI) | payer MEDICARE, OTHER ==
[~2021-09-07] MED LIST changes: +VITMTA PO
== END ==
LOC: M LABSMTC 09:54
PROVIDERS: ATTEND Anesthesiology
DX: Z11.52 Encounter for screening for COVID-19 (principal); Z20.822 Contact with and (suspected) exposure to COVID-19

== ENCOUNTER 2021-09-09 09:01 | Day surgery (SDC) | payer MEDICARE, OTHER ==
[~2021-09-09] VITALS: Ht 170.2 cm; Wt 85.3 kg
[~2021-09-09 09:01] MED LIST changes: +NS 1,000 ML IV ONE
[2021-09-09] MEDS ORDERED: LIDOCAINE 2% 100MG/5ML SDV (FOR ANES.) As Ordered ONE (10:43)
[2021-09-09] MEDS ORDERED: propofoL 200 MG/20 ML VIAL As Ordered ONE (10:43)
[2021-09-09] MEDS ORDERED: GLYCOPYRROLATE INJ 0.2 MG/ML 2 ML VIAL As Ordered ONE (10:44)
[2021-09-09 11:35] VITALS: BP 126/70
== END 2021-09-09 11:35 | disposition home or self-care (01) ==
LOC: M OPP 09:01
PROVIDERS: ATTEND Internal Medicine Gastroenterology
DX: D12.0 Benign neoplasm of cecum (principal); D12.2 Benign neoplasm of ascending colon; D12.3 Benign neoplasm of transverse colon; K57.30 Diverticulosis of large intestine without perforation or abscess without bleeding; K64.8 Other hemorrhoids; R19.4 Change in bowel habit; R10.12 Left upper quadrant pain; Z79.02 Long term (current) use of antithrombotics/antiplatelets; Z79.899 Other long term (current) drug therapy; Z88.0 Allergy status to penicillin; Z87.442 Personal history of urinary calculi

== ENCOUNTER → 2022-01-20 | Outpatient (CLI) | payer MEDICARE, OTHER ==
[~2022-01-20] MED LIST changes: -NS 1,000 ML IV ONE
[2022-01-20 12:21] LABS: BLOOD UREA NITROGEN 20 MG/DL (7-18); CALCIUM LEVEL 9.7 MG/DL (8.8-10.2); CARBON DIOXIDE LEVEL 31 MEQ/L (21-32); CHLORIDE LEVEL 106 MEQ/L (98-107); CREATININE FOR GFR 1.06 MG/DL (0.70-1.30); GLOMERULAR FILTRATION RATE > 60.0 (>49); GLUCOSE, FASTING 127 MG/DL (70-100); POTASSIUM SERUM 4.6 MEQ/L (3.5-5.1); SODIUM LEVEL 139 MEQ/L (136-145)
[2022-01-20 14:14] LABS: HEMOGLOBIN A1c 6.2 %
== END ==
LOC: M PLALAB 08:55
PROVIDERS: ATTEND Family Medicine
DX: R73.03 Prediabetes (principal)

== ENCOUNTER → 2022-03-14 | Outpatient (REF) | payer MEDICARE, OTHER | LOC: M SFHCADAM 12:50 | PROVIDERS: ATTEND Family Medicine | DX: R09.89 Other specified symptoms and signs involving the circulatory and respiratory systems (principal) ==

== ENCOUNTER → 2022-07-20 | Outpatient (CLI) | payer MEDICARE, OTHER | LOC: M ADAMS 10:25 | PROVIDERS: ATTEND Family Medicine | DX: R07.81 Pleurodynia (principal) ==

== ENCOUNTER → 2022-08-28 | Outpatient (CLI) | payer MEDICARE, OTHER ==
[2022-08-28 16:10] LABS: HEMATOCRIT 40.6 % (42.0-52.0); HEMOGLOBIN 13.6 g/dl (13.5-17.5); MEAN CORPUSCULAR HEMOGLOBIN 31.6 pg (27.0-33.0); MEAN CORPUSCULAR HGB CONC 33.5 g/dl (32.0-36.5); MEAN CORPUSCULAR VOLUME 94.4 fl (80.0-96.0); PLATELET COUNT, AUTOMATED 201 10^3/uL (150-450); WHITE BLOOD COUNT 5.1 10^3/uL (4.0-10.0)
[2022-08-28 16:14] LABS: HEMOGLOBIN A1c 5.5 % (4.0-6.0)
[2022-08-28 16:42] LABS: ALBUMIN 3.9 G/DL (3.2-5.2); ALKALINE PHOSPHATASE 67 U/L (46-116); ALT/SGPT 27 U/L (7.0-40); AST/SGOT 25 U/L (<34); BILIRUBIN,TOTAL 1.2 MG/DL (0.3-1.2); BLOOD UREA NITROGEN 25 MG/DL (9-23); CALCIUM LEVEL 9.5 MG/DL (8.3-10.6); CARBON DIOXIDE LEVEL 29 MMOL/L (20-31); CHLORIDE LEVEL 107 MMOL/L (98-107); CHOLESTEROL LEVEL 124 MG/DL (<200); CHOLESTEROL RISK RATIO 2.02 (<5); CREATININE FOR GFR 1.04 MG/DL (0.70-1.30); GLOMERULAR FILTRATION RATE > 60.0 (>42); GLUCOSE, FASTING 97 MG/DL (74-106); HDL CHOLESTEROL 61.3 MG/DL (>40); LDL CHOLESTEROL 51.5 MG/DL (<100); NON-HDL-C 62.7 MG/DL; POTASSIUM SERUM 4.6 MMOL/L (3.5-5.1); SODIUM LEVEL 142 MMOL/L (136-145); THYROID STIMULATING HORMONE 0.931 uIU/ML (0.55-4.78); TOTAL PROTEIN 6.4 G/DL (5.7-8.2); TRIGLYCERIDES LEVEL 56 MG/DL (<150)
[2022-08-28 16:43] LABS: FREE T4 0.94 NG/DL (0.89-1.76)
== END ==
LOC: M PLALAB 12:54
PROVIDERS: ATTEND Family Medicine
DX: Z12.5 Encounter for screening for malignant neoplasm of prostate (principal); I42.9 Cardiomyopathy, unspecified; R73.03 Prediabetes; E78.5 Hyperlipidemia, unspecified
CPT/HCPCS: 36415; 80053; 80061; 83036; 84439; 84443; 85027; G0103

== ENCOUNTER → 2022-11-22 | Outpatient (REF) | payer MEDICARE, OTHER ==
[2022-11-22 13:05] LABS: APPEARANCE, URINE HAZY (CLEAR); BACTERIA, URINE AUTO NEGATIVE (NEGATIVE); BILIRUBIN, URINE AUTO NEGATIVE (NEGATIVE); BLOOD, URINE BLOOD NEGATIVE (NEGATIVE); COLOR, URINE AMBER (YELLOW); GLUCOSE, URINE (UA) AUTO 1+ mg/dL (NEGATIVE); KETONE, URINE AUTO NEGATIVE (NEGATIVE); LEUKOCYTE ESTERASE, URINE AUTO NEGATIVE (NEGATIVE); MUCUS, URINE SMALL (NEGATIVE); NITRITE, URINE AUTO NEGATIVE (NEGATIVE); PROTEIN, URINE AUTO 1+ mg/dL (NEGATIVE); RBC, URINE AUTO 4 /HPF (0-3); SPECIFIC GRAVITY URINE AUTO 1.026 (1.002-1.035); SQUAMOUS EPITHELIAL CELL UR AU 0 /HPF (0-6); UROBILINOGEN, URINE AUTO 0.2 mg/dL (0.0-2.0); WBC, URINE AUTO 1 /HPF (0-3)
[2022-11-22 13:12] LABS: BASO % 0.6 % (0.0-1.0); EOS % 0.2 % (0.0-3.0); HEMATOCRIT 42.2 % (42.0-52.0); HEMOGLOBIN 14.3 g/dl (13.5-17.5); LYMPH # 1.1 10^3/uL (1.5-5.0); LYMPH % 20.6 % (24.0-44.0); MEAN CORPUSCULAR HEMOGLOBIN 31.6 pg (27.0-33.0); MEAN CORPUSCULAR HGB CONC 33.9 g/dl (32.0-36.5); MEAN CORPUSCULAR VOLUME 93.4 fl (80.0-96.0); MONO # 0.8 10^3/uL (0.0-0.8); NEUTROPHILS # 3.3 10^3/uL (1.5-8.5); NEUTROPHILS % 63.4 % (36.0-66.0); PLATELET COUNT, AUTOMATED 107 10^3/uL (150-450); RED BLOOD COUNT 4.52 10^6/uL (4.30-6.10); WHITE BLOOD COUNT 5.2 10^3/uL (4.0-10.0)
[2022-11-22 13:37] LABS: ERYTHROCYTE SEDIMENTATION RATE 12 mm/hr (0-20)
== END ==
LOC: M SFHCADAM 10:52
PROVIDERS: ATTEND Family Medicine
DX: R05.1 Acute cough (principal); R50.9 Fever, unspecified

== ENCOUNTER → 2022-11-22 | Outpatient (CLI) | payer MEDICARE, OTHER | LOC: M ADAMS 11:00 | PROVIDERS: ATTEND Family Medicine | DX: R05.1 Acute cough (principal) ==

== ENCOUNTER → 2022-11-27 | Outpatient (REF) | payer MEDICARE, OTHER ==
[2022-11-27 15:25] LABS: HEMATOCRIT 41.3 % (42.0-52.0); HEMOGLOBIN 13.8 g/dl (13.5-17.5); MEAN CORPUSCULAR HEMOGLOBIN 31.2 pg (27.0-33.0); MEAN CORPUSCULAR HGB CONC 33.4 g/dl (32.0-36.5); MEAN CORPUSCULAR VOLUME 93.4 fl (80.0-96.0); PLATELET COUNT, AUTOMATED 119 10^3/uL (150-450); RED BLOOD COUNT 4.42 10^6/uL (4.30-6.10)
[2022-11-27 15:50] LABS: ALBUMIN 3.4 G/DL (3.2-5.2); ALKALINE PHOSPHATASE 85 U/L (46-116); ALT/SGPT 65 U/L (7.0-40); AST/SGOT 50 U/L (<34); BILIRUBIN,TOTAL 0.7 MG/DL (0.3-1.2); BLOOD UREA NITROGEN 17 MG/DL (9-23); CALCIUM LEVEL 8.9 MG/DL (8.3-10.6); CARBON DIOXIDE LEVEL 29 MMOL/L (20-31); CHLORIDE LEVEL 102 MMOL/L (98-107); GLOMERULAR FILTRATION RATE > 60.0 (>42); GLUCOSE, FASTING 138 MG/DL (74-106); SODIUM LEVEL 140 MMOL/L (136-145); TOTAL PROTEIN 6.5 G/DL (5.7-8.2)
[2022-11-27 15:52] LABS: MONO REFLEX EBV VCA IgM NEGATIVE (NEGATIVE)
[2022-11-27 19:55] LABS: ATYPICAL LYMPH 1 % (0-5); EOSINOPHILS 4 % (0-3); LYMPHOCYTES 38 % (16-44); MONOCYTES 2 % (0-5); NEUTROPHILS 54 % (28-66); PLATELET ESTIMATE NORMAL (NORMAL)
[2022-11-27 20:03] LABS: ERYTHROCYTE SEDIMENTATION RATE 24 mm/hr (0-20)
[2022-11-29 14:09] LABS: EBV VIRAL CAPSID AG IgM <36.0 U/mL (0.0-35.9)
== END ==
LOC: M SFHCADAM 12:05
PROVIDERS: ATTEND Physician Assistant Medical
DX: R50.9 Fever, unspecified (principal); R53.81 Other malaise; R53.83 Other fatigue

== ENCOUNTER → 2022-12-01 | Outpatient (CLI) | payer MEDICARE, OTHER ==
[2022-12-07 21:07] LABS: FREE KAPPA LIGHT CHAINS SERUM 41.7 mg/L (3.3-19.4); FREE LAMBDA LIGHT CHAINS SERUM 28.4 mg/L (5.7-26.3); KAPPA/LAMBDA RATIO SERUM 1.47 (0.26-1.65)
== END ==
LOC: M PLALAB 14:54
PROVIDERS: ATTEND Family Medicine
DX: R50.9 Fever, unspecified (principal); R79.82 Elevated C-reactive protein (CRP)

== ENCOUNTER → 2022-12-01 | Outpatient (REF) | payer MEDICARE, OTHER | LOC: M SFHCADAM 14:20 | PROVIDERS: ATTEND Family Medicine | DX: R50.9 Fever, unspecified (principal); R79.82 Elevated C-reactive protein (CRP); Z53.9 Procedure and treatment not carried out, unspecified reason ==

== ENCOUNTER → 2022-12-07 | Outpatient (CLI) | payer MEDICARE, OTHER | LOC: M RAD 14:46 | PROVIDERS: ATTEND Family Medicine | DX: R50.9 Fever, unspecified (principal); R05.3 Chronic cough ==

== ENCOUNTER → 2023-01-12 | Outpatient (CLI) | payer MEDICARE, OTHER | LOC: M PLALAB 10:57 | PROVIDERS: ATTEND Family Medicine | DX: R79.82 Elevated C-reactive protein (CRP) (principal) ==

== ENCOUNTER → 2023-07-18 | Outpatient (CLI) | payer MEDICARE, OTHER | LOC: M RAD 09:06 | PROVIDERS: ATTEND Internal Medicine Cardiovascular Disease | DX: R55 Syncope and collapse (principal) ==

== ENCOUNTER → 2023-08-13 | Outpatient (CLI) | payer MEDICARE, OTHER | LOC: M PLAIMG 12:44 | PROVIDERS: ATTEND Physician Assistant | DX: N20.0 Calculus of kidney (principal); N28.1 Cyst of kidney, acquired ==

== ENCOUNTER → 2023-09-06 | Outpatient (CLI) | payer MEDICARE, OTHER ==
[2023-09-06 14:41] LABS: ALBUMIN 3.9 G/DL (3.2-5.2); ALKALINE PHOSPHATASE 70 U/L (46-116); ALT/SGPT 30 U/L (7.0-40); AST/SGOT 19 U/L (<34); BILIRUBIN,TOTAL 0.9 MG/DL (0.3-1.2); BLOOD UREA NITROGEN 22 MG/DL (9-23); CALCIUM LEVEL 9.6 MG/DL (8.3-10.6); CARBON DIOXIDE LEVEL 29 MMOL/L (20-31); CHLORIDE LEVEL 109 MMOL/L (98-107); CHOLESTEROL LEVEL 140 MG/DL (<200); CHOLESTEROL RISK RATIO 2.21 (<5); CREATININE FOR GFR 0.98 MG/DL (0.70-1.30); GLOMERULAR FILTRATION RATE > 60.0 (>42); GLUCOSE, FASTING 111 MG/DL (74-106); HDL CHOLESTEROL 63.2 MG/DL (>40); LDL CHOLESTEROL 63.2 MG/DL (<100); NON-HDL-C 76.8 MG/DL; POTASSIUM SERUM 4.7 MMOL/L (3.5-5.1); PSA SCREENING 0.87 NG/ML (< 4.00); SODIUM LEVEL 142 MMOL/L (136-145); TOTAL PROTEIN 6.6 G/DL (5.7-8.2); TRIGLYCERIDES LEVEL 68 MG/DL (<150)
[2023-09-06 14:45] LABS: HEMATOCRIT 43.6 % (42.0-52.0); HEMOGLOBIN 14.7 g/dl (13.5-17.5); MEAN CORPUSCULAR HGB CONC 33.7 g/dl (32.0-36.5); MEAN CORPUSCULAR VOLUME 94.8 fl (80.0-96.0); PLATELET COUNT, AUTOMATED 198 10^3/uL (150-450); WHITE BLOOD COUNT 5.2 10^3/uL (4.0-10.0)
[2023-09-06 15:18] LABS: HEMOGLOBIN A1c 5.6 % (4.0-6.0)
== END ==
LOC: M PLALAB 10:25
PROVIDERS: ATTEND Family Medicine
DX: R73.03 Prediabetes (principal); I10 Essential (primary) hypertension; E78.5 Hyperlipidemia, unspecified; I42.9 Cardiomyopathy, unspecified; Z12.5 Encounter for screening for malignant neoplasm of prostate
CPT/HCPCS: 36415; 80053; 80061; 83036; 85027; G0103

== ENCOUNTER → 2023-09-13 | Outpatient (CLI) | payer MEDICARE, OTHER | LOC: M ADAMS 09:25 | PROVIDERS: ATTEND Family Medicine | DX: M54.50 Low back pain, unspecified (principal) ==

== ENCOUNTER → 2023-10-09 | Outpatient (REF) | payer MEDICARE, OTHER | LOC: M SFHCADAM 12:44 | PROVIDERS: ATTEND Physician Assistant Medical | DX: J06.9 Acute upper respiratory infection, unspecified (principal) ==

== ENCOUNTER 2024-12-29 08:21 | Day surgery (SDC) | payer MEDICARE, OTHER ==
[~2024-12-29] VITALS: Ht 170.2 cm; Wt 83.5 kg
[~2024-12-29 08:21] MED LIST changes: -FLOM0.4C39 PO; +TAMS-18 PO
[2024-12-29] MEDS ORDERED: GLYCOPYRROLATE INJ 0.2 MG/ML 2 ML VIAL As Ordered ONE (09:58)
[2024-12-29 10:11] VITALS: TEMP 97.9
[2024-12-29 10:33] VITALS: BP 132/62; O2SAT 98
== END 2024-12-29 10:39 | disposition home or self-care (01) ==
LOC: M OPP 08:21
PROVIDERS: ATTEND Internal Medicine Gastroenterology
DX: K57.30 Diverticulosis of large intestine without perforation or abscess without bleeding (principal); K64.8 Other hemorrhoids; Z86.0100 Personal history of colon polyps, unspecified; Z88.0 Allergy status to penicillin; Z79.899 Other long term (current) drug therapy
CPT/HCPCS: 45378; J1596